=== PATIENT | male | born 1985 | race African-American/Black ===

== ENCOUNTER 2017-04-08 23:45 | Emergency (ER) | payer SELFPAY ==
[2017-04-08] MEDS ORDERED: IPRATROPIUM/ALBUTEROL SULFATE 3 ML AMPUL.NEB NEB ONE (23:55)
[2017-04-09] MEDS: IPRATROPIUM/ALBUTEROL SULFATE 3 ML AMPUL.NEB NEB ONE (00:15)
[2017-04-09] MEDS ORDERED: predniSONE 10 MG TABLET PO ONE (00:34)
[2017-04-09] MEDS: predniSONE 20 MG TABLET PO ONE (00:36)
[2017-04-09 00:53] VITALS: BP 118/88
[2017-04-09] MEDS ORDERED: BUDESONIDE 0.5MG/2ML AMPUL.NEB NEB SCH (01:00)
--- NOTE | 2017-04-09 05:09 | ED Physician Documentation ---
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 Pt became wheezy while traveling and walked to ER from [place].) - ROS CONST: no problems EYES/ENT: none CVS/RESP: shortness of breath, other (wheezing) GI/: none MS/SKIN/LYMPH: none - PAST HX Past History: asthma Allergies/Adverse Reactions: Allergies Allergy/AdvReac Type Severity Reaction Status Date / Time shellfish derived Allergy Severe Shortness Verified 04/09/17 00:00 of Breath Home Medications: Ambulatory Orders Medication Instructions Recorded Albuterol Sulfate [Proair 90 mcg IH QDAY PRN 04/09/17 Respiclick] - SOCIAL HX Smoking History: non-smoker - FAMILY HX Family History: No - REVIEWED ASSESSMENTS Nursing Assessment Reviewed: Yes Vitals Reviewed: Yes Progress - Progress Progress: Duoneb HFN x 1 improved Pt declined Pulmicort tx. Prednisone 50 mg po x 1. Rx Prednisone 50 mg. Take one tablet by mouth once daily for 4 days. Start on 04/10/17. Rx Albuterol (90 mcg/spray) MDI. Take 2 puffs every 4 to 6 hrs as needed. ED Results Lab/Radiology - Orders Orders: ED Orders Category Date Time Status Ipratropium/Albuterol Sulfate [Duoneb] Med 04/08/17 23:55 Discontinued 3 ml NEB .STK-MED ONE General Adult Physical Exam - PHYSICAL EXAM GENERAL APPEARANCE: moderate distress EENT: pharynx normal NECK: normal inspection, supple RESPIRATORY: chest non-tender, wheezes CVS: reg rate & rhythm, heart sounds normal BACK: normal inspection SKIN: warm/dry, normal color EXTREMITIES: non-tender, normal range of motion, no evidence of injury NEURO: oriented X3, motor nml, sensation nml Discharge Clincal Impression: Asthma Qualifiers: Asthma severity: unspecified severity Asthma complication type: with acute exacerbation Qualified Code(s): J45.901 - Unspecified asthma with (acute) exacerbation Home Medications: Ambulatory Orders Albuterol Sulfate [Proair Respiclick] 90 mcg IH QDAY PRN 04/09/17 Condition: Good Disposition: 01 HOME, SELF-CARE Decision to Admit: NO Decision Time: 00:45
== END 2017-04-09 00:42 | disposition home or self-care (01) ==
LOC: ED 23:45
DX: J45.901 Unspecified asthma with (acute) exacerbation (principal)
CPT/HCPCS: 99283; J7512